=== PATIENT | male | born 1995 | race Two or more races ===

== ENCOUNTER 2024-12-13 14:00 | Emergency (ER) | payer MEDICAID, OTHER ==
[~2024-12-13] VITALS: Ht 167.6 cm; Wt 90.9 kg
[2024-12-13] MEDS ORDERED: HYDR-3965 PO (14:41)
[2024-12-13] MEDS ORDERED: SILV50CR31 TP (14:41)
[2024-12-13] MEDS: HYDROcodone/acetaminophen 10/325mg tab PO ONE (14:47)
[2024-12-13] MEDS: silver sulfadiazine cream 400gm jar TP ONE (14:54)
[2024-12-13 15:02] VITALS: BP 137/88; PULSE 71; RESP 16; TEMP 97.9; O2SAT 99
== END 2024-12-13 15:04 | disposition home or self-care (01) ==
LOC: ER 14:01
DX: T23.202A Burn of second degree of left hand, unspecified site, initial encounter (principal); X08.8XXA Exposure to other specified smoke, fire and flames, initial encounter; Y93.G3 Activity, cooking and baking; Y92.89 Other specified places as the place of occurrence of the external cause; Y99.8 Other external cause status
CPT/HCPCS: 16020; 99283; A6258; A6449

== ENCOUNTER 2025-09-20 07:49 | Emergency (ER) | payer SELFPAY ==
[~2025-09-20] VITALS: Ht 152.4 cm; Wt 113.2 kg
--- NOTE | 2025-09-20 08:43 | RADIOLOGY REPORT ---
CLINICAL INDICATION: KNEE PAIN TECHNIQUE: 4 radiographic views of the left knee were obtained. Comparison: None FINDINGS/IMPRESSION: There is no evidence of acute fracture or dislocation. The visualized joint space is well maintained. The alignment is anatomical. There is no radiopaque foreign body.
[2025-09-20] MEDS: ketorolac trometh 30MG/ML vial 30 MG/ML VIAL IM STA (09:57)
--- NOTE | 2025-09-20 10:19 | Physician Documentation ---
History of Present Illness ~ Chief Complaint: Knee Pain Stated Complaint: KNEE PAIN Time Seen by MD: 09:26 Primary Medical Doctor: NONE HPI Patient is seen today with complaints of left knee pain for a couple of days. He states he tried to get out of bed yesterday and his knee buckled because of pain. Patient states he is on his feet a lot for work and states sometimes when he overdoes it his knee swells and becomes painful. Patient denies any specific injury to the left knee. He has no other concern or complaint at this time and denies any fever or chills Tetanus witin 5 years: No Medication Reconciliation Allergies: Coded Allergies: No Known Allergies (Unverified , 12/13/24) Past Medical History Past Medical History: No Pertinent History Past Surgical History: no surgical history Alcohol Use: None Drug Use: none Lives In: Home Occupation: employed Review of Systems Constitutional: Denies: chills, fever, weakness Eyes: Denies: pain, blurred vision ENT: Denies: ear pain, nose pain, throat pain, mouth pain Respiratory: Denies: cough, shortness of breath Cardiovascular: Denies: chest pain, palpitations Gastrointestinal: Denies: abdominal pain, nausea, vomiting Genitourinary: Denies: burning, dysuria Male Genitalia: Denies: penile discharge, testicular pain Neurological: Denies: headache, dizziness Musculoskeletal: Denies: pain, swelling Integumentary: Denies: rash, lesions Allergic/Immunologic: Denies: hives, itching Hematologic/Lymphatic: Denies: no symptoms reported Psychiatric: Denies: depression, anxiety Physical Exam Vital Signs: Temperature: 97.6, Source: Temporal, Heart Rate: 90, Respiratory Rate: 18, BP: 127/83, Pulse Oximetry: 95, Weight: 113.200 Oxygen Flow Rate: 0 Physical Exam General: Awake and Alert, no acute distress. HEENT: Conjunctiva pink, Sclera clear, Mucus Membranes moist. Neck: Supple without masses and tenderness. Resp: Unlabored. Lungs clear to auscultation bilaterally. Heart: Regular Rate and rhythm, normal S1 and S2 without murmur, rub or gallop. Abdomen: Soft and non tender no organomegaly Extremities: No cyanosis,clubbing or edema. Skin: Warm and Dry. Progress Results/Orders Results/Orders Completed Orders - ALLISON,HANNAH R PAC Ketorolac Trometh 30mg/Ml Vial (Toradol (09/20/25 09:35) Medications Received in ER Medications (Trade) Dose Ordered Sig/Ochoa Route PRN Reason Start Time Stop Time Status Last Admin Dose Admin (Toradol inj. 30mg/ml) 30 mg ONCE STAT IM 09/20/25 09:35 09/20/25 09:36 DC 09/20/25 09:57 30 MG Vital Signs 09/20/25 09/20/25 08:08 09:57 Temp 97.6 Pulse 90 Resp 15 18 B/P (MAP) 127/83 Pulse Ox 95 O2 Flow Rate 0 EKG/XRAY/CT/US/VASC/MRI Bone/Soft Tissue X-Ray (Ext.) : Additional Comment X-ray of the left knee interpreted by myself today shows no sign of acute frac ture, bones in anatomic alignment, no dislocation. DIAGNOSTIC RADIOLOGY Patient: SONIA CORNELIUS Medical Record: [id number] [facility] 1995, Age: 30 Sex: Male Location: ER Patient Status: REG ER Service Date/Time: 09/20/25828 Ordering Physician: CHRISTIANO ASCENCIO MD Exam: KNEE, COMP 4 VW MIN CLINICAL INDICATION: KNEE PAIN TECHNIQUE: 4 radiographic views of the left knee were obtained. Comparison: None FINDINGS/IMPRESSION: There is no evidence of acute fracture or dislocation. The visualized joint space is well maintained. The alignment is anatomical. There is no radiopaque foreign body. Electronically Signed by:ARUN HERNANDEZ MD Date & Time: 09/20/25840 Dictated by: ARUN HERNANDEZ MD Dictation date and time: 09/20/25818 Primary Care Provider: NO PRIMARY CARE PROVIDER cc: CHRISTIANO ASCENCIO MD ~ Medical Decision Making Additional information obtaine: N/A Findings Patient is seen today with complaints of left knee pain for a couple of days. He states he tried to get out of bed yesterday and his knee buckled because of pain. Patient states he is on his feet a lot for work and states sometimes when he overdoes it his knee swells and becomes painful. Patient denies any specific injury to the left knee. He has no other concern or complaint at this time and denies any fever or chills Patient was given Toradol injection 30 mg IM along with prescription for meloxicam 15 mg one tab once a day to be taken with food. Patient was given note for work as well and patient will follow up with family practice to get referral to dentofacial orthopedics dentist for MRI and orthopedic consult. Return to ED with any worsening, concerning or changing symptoms. General Diff Dx:Considerations: Include: Contusion, Fracture, Hematoma, Sprain Knee Diff Dx:Considerations: Include: DJD, Fracture-femur, Gout, Hematoma Ankle Diff Dx:Considerations: Unlikely: Abrasion, Arthritis, Contusion, DJD, Fracture-metatarsal, Fracture-fibula, Fracture-tarsal, Fracture-tibia, Gout, Hematoma, Laceration, Malunion, Neurovascular injury, Nonunion, Open fracture, Osteomyelitis, Rheumatoid arthritis, Sprain, Septic, Ulcer, Other Foot Diff Dx:Considerations: Unlikely: Abrasion, Arthritis, Cellulitis, Contusion, Dislocation, DJD, Fracture-metatarsal, Fracture-phalynx, Fracture- tarsal, Gout, Hematoma, Ingrown toenail, Laceration, Malunion, Neurovascular injury, Open fracture, Paronychia, Puncture, Rheumatoid, Sprain, Septic, Subungual hematoma, Ulcer, Other Toe Diff Dx:Considerations: Unlikely: Abrasion, Cellulitis, Contusion, Dislocation, Felon, Fracture, Hematoma, Laceration, Neurovascular injury, Open fracture, Paronychia, Subungual hematoma, Other Departure Disposition: 01 HOME / SELF CARE / HOMELESS Impression: Primary Impression: Knee pain Qualified Codes: M25.562 - Pain in left knee Additional Impression: Effusion of knee Qualified Codes: M25.462 - Effusion, left knee Condition: Stable Discharge Instructions: Acute Knee Pain, Adult, Knee Effusion Additional Instructions: Patient was given Toradol injection 30 mg IM along with prescription for meloxicam 15 mg one tab once a day to be taken with food. Patient was given note for work as well and patient will follow up with family practice to get referral to dentofacial orthopedics dentist for MRI and orthopedic consult. Return to ED with any worsening, concerning or changing symptoms. Referrals: NO PRIMARY CARE PROVIDER (PCP) Prescriptions Meloxicam (Meloxicam) 15 Mg Tablet 1 TAB PO DAILY for 30 Days, #30 TAB 0 Refills Prov: HANNAH ALLISON 09/20/25 Signature Scribe Signature: no scribe Attestation: No scribe HANNAH ALLISON Sep 20, 2025 10:19
[2025-09-20] MEDS ORDERED: MELO-102 PO (10:29)
[2025-09-20 10:51] VITALS: BP 127/84; PULSE 89; RESP 16; TEMP 97.5; O2SAT 99
== END 2025-09-20 10:56 | disposition home or self-care (01) ==
LOC: ER 07:49
DX: M25.562 Pain in left knee (principal); M25.462 Effusion, left knee
CPT/HCPCS: 73564; 96372; 99283; J1885